=== PATIENT | female | born 1960 | race Two or more races ===

== ENCOUNTER 2019-06-05 14:12 | Outpatient (CLI) | payer OTHER ==
--- NOTE | 2019-06-11 09:40 | Mammography Report ---
Reason: ROUTINE MAMMO Procedure Date: 06/05/2019 Accession Number: [id number] / [id number] Procedure: MGN - Screening Mammo Dig Bilat CPT Code: Final Report FULL RESULT: EXAM: Screening Mammo Dig Bilat DATE: 06/05/2019 2:42 PM CLINICAL HISTORY: Screening encounter. TECHNIQUE: (B) - Bilateral CC, laterally exaggerated CC, MLO views were obtained. COMPARISON: 03/21/2018 through 08/05/2015. PARENCHYMAL PATTERN: (D) - The breast(s) demonstrate(s) heterogeneously dense fibroglandular parenchyma. FINDINGS: There are typically benign calcifications. There are no suspicious masses, calcifications, or areas of distortion. IMPRESSION: Benign findings. BI-RADS category 2. RECOMMENDATION: (ANNUAL) - Recommend routine annual screening mammography. BI-RADS CATEGORY: (2) - Benign Findings. STANDARD QUALIFYING STATEMENTS: 1. This examination was not reviewed with the aid of Computer-Aided Detection (CAD). 2. A negative or benign imaging report should not preclude biopsy if clinically suspicious findings are present. 3. Dense breasts may obscure an underlying neoplasm. 4. This examination was reviewed without the aid of 3D breast imaging (tomosynthesis).
== END 2019-06-05 14:13 | disposition home or self-care (01) ==
LOC: DI.N 14:12
DX: Z12.31 Encounter for screening mammogram for malignant neoplasm of breast (principal)
CPT/HCPCS: 77067

== ENCOUNTER 2020-10-23 14:32 | Outpatient (CLI) | payer OTHER ==
--- NOTE | 2020-10-24 09:36 | Mammography Report ---
BILATERAL DIGITAL SCREENING MAMMOGRAM 3D/2D: 10/23/2020 CLINICAL: Routine screening. Comparison is made to exams dated: 06/05/2019 mammogram - [facility] and 03/21/2018 mammogram - [facility]. The tissue of both breasts is heterogeneously dense. This may lowe r the sensitivity of mammography. There is an oval equal density mass with an obscured and circumscribed margin in the right breast patricia tral to the nipple middle depth. This is increased in size. No other significant masses, calcifications, or other findings are seen in either breast. IMPRESSION: INCOMPLETE: NEEDS ADDITIONAL IMAGING EVALUATION The oval equal density mass in the right breast resembles a cyst and is indeterminate. An ultrasound is recommended. This exam was interpreted at Station ID: [id number]. NOTE: For mammograms, a report in lay terms will be sent to the patient. Approximately 15% of breast malignancies will not be visualized mammographically. In the management of a palpable breast mass, a negative mammogram must not discourage biopsy of a clinically suspicious lesion. Electronically Signed By: Taye Tristan M.D. ddp/:10/23/2020 15:07:21 ACR BI-RADS Category 0: Incomplete 3340F PARENCHYMAL PATTERN: (D) - The breast(s) demonstrate(s) heterogeneously dense fibroglandular arely berumen. BI-RADS CATEGORY: (0) - 0 Ultrasound [id number] Immediate follow-up LATERALITY: (B)
== END 2020-10-23 14:33 | disposition home or self-care (01) ==
LOC: DI.N 14:32
DX: Z12.31 Encounter for screening mammogram for malignant neoplasm of breast (principal); R92.8 Other abnormal and inconclusive findings on diagnostic imaging of breast

== ENCOUNTER 2020-11-14 13:39 | Outpatient (CLI) | payer OTHER ==
--- NOTE | 2020-11-18 16:06 | Ultrasound Report ---
LIMITED ULTRASOUND OF RIGHT BREAST: 11/14/2020 CLINICAL: Patient returns today to evaluate a focal asymmetry in the right breast. Comparison is made to exams dated: 10/23/2020 mammogram, 06/05/2019 mammogram - [facility], and 03/21/2018 mammogram - [facility]. Color flow and real-time ultrasound of the right breast 9 o'clock region were performed. Zavala scale images of the real-time examination were reviewed. There is a 1.4 cm x 1.1 cm x 0.9 cm oval cyst in the right breast at 9 o'clock middle depth 1 cm from the nipple. This oval cyst is anechoic with a well-defined boundary and internal echoes. This oswaldo elates with mammography findings. Color flow imaging demonstrates that there is no vascularity prese nt. There also is a 0.7 cm x 0.3 cm x 0.3 cm oval mass with a circumscribed margin in the right breast at 9 o'clock posterior depth 1 cm from the nipple. This oval mass is hypoechoic with no posterior acou stic shadowing or enhancement. This abnormality is not significantly changed. There are calcificati ons within the mass. Color flow imaging demonstrates that there is no vascularity present. IMPRESSION: PROBABLY BENIGN The 1.4 cm oval cyst in the right breast at 9 o'clock middle depth is consistent with a complicated c yst and is probably benign. The 0.7 cm oval mass in the right breast at 9 o'clock posterior depth most likely is a fibroadenoma a nd is probably benign. Recommend follow-up mammogram and ultrasound in 6 months. Exam findings were conveyed to the patient. Patient is advised to monitor for significant change. This exam was interpreted at Station ID: [id number]. Electronically Signed By: Rad Robison M.D. [facility] [place]/:11/18/2020 15:33:41 Ultrasound BI-RADS: 3 Probably benign BI-RADS CATEGORY: (3) - 3 Mammo and [place] [id number] 6 month follow-up LATERALITY: (B)
== END 2020-11-14 13:40 | disposition home or self-care (01) ==
LOC: DI 13:39
PROVIDERS: ATTEND Family Medicine
DX: N60.01 Solitary cyst of right breast (principal); N63.15 Unspecified lump in the right breast, overlapping quadrants

== ENCOUNTER 2022-09-23 14:20 | Outpatient (CLI) | payer OTHER ==
[2022-09-23 17:39] LABS: CALCIUM 8.9 mg/dL (8.5-10.3); CREATININE 2.1 mg/dL (0.4-1.0); POTASSIUM 3.6 mmol/L (3.5-5.0)
[2022-09-24 18:39] LABS: CREATININE,URINE 54.8 mg/dL; MICROALBUM/CREATININE RATIO,UR 2729.9 ug/mg (<30.0); MICROALBUMIN,URINE 149.6 mg/dL (0-300.0)
== END 2022-09-23 23:59 | disposition home or self-care (01) ==
LOC: LAB.N 14:20
PROVIDERS: ATTEND Internal Medicine Nephrology
DX: R80.9 Proteinuria, unspecified (principal); N18.9 Chronic kidney disease, unspecified; E83.9 Disorder of mineral metabolism, unspecified; M89.9 Disorder of bone, unspecified
CPT/HCPCS: 36415; 80048; 81599; 82043; 82570; 83970

== ENCOUNTER 2022-10-06 14:21 | Outpatient (CLI) | payer OTHER ==
[2022-10-06 17:59] LABS: CALCIUM 8.6 mg/dL (8.5-10.3); CREATININE 1.5 mg/dL (0.4-1.0); POTASSIUM 3.9 mmol/L (3.5-5.0)
== END 2022-10-06 14:22 | disposition home or self-care (01) ==
LOC: LAB.N 14:21
PROVIDERS: ATTEND Internal Medicine Nephrology
DX: N17.9 Acute kidney failure, unspecified (principal)
CPT/HCPCS: 36415; 80048

== ENCOUNTER 2022-11-23 14:18 | Outpatient (CLI) | payer OTHER ==
[2022-11-23 18:15] LABS: CALCIUM 9.2 mg/dL (8.5-10.3); CREATININE 1.3 mg/dL (0.4-1.0); POTASSIUM 3.9 mmol/L (3.5-5.0)
[2022-11-23 18:37] LABS: CREATININE,URINE 23.4 mg/dL; MICROALBUM/CREATININE RATIO,UR 3209.4 ug/mg (<30.0); MICROALBUMIN,URINE 75.1 mg/dL (0-300.0)
== END 2022-11-23 14:19 | disposition home or self-care (01) ==
LOC: LAB.N 14:18
PROVIDERS: ATTEND Internal Medicine Nephrology
DX: N18.32 Chronic kidney disease, stage 3b (principal)
CPT/HCPCS: 36415; 80048; 82043; 82570

== ENCOUNTER 2023-03-09 14:18 | Outpatient (CLI) | payer OTHER ==
[2023-03-09 17:59] LABS: CALCIUM 9.8 mg/dL (8.5-10.3); CREATININE 1.9 mg/dL (0.6-1.3); POTASSIUM 4.1 mmol/L (3.5-4.5)
[2023-03-09 18:36] LABS: MICROALBUM/CREATININE RATIO,UR 1574.5 ug/mg (<30.0); MICROALBUMIN,URINE 86.6 mg/dL
== END 2023-03-09 14:19 | disposition home or self-care (01) ==
LOC: LAB.N 14:18
PROVIDERS: ATTEND Internal Medicine Nephrology
DX: N18.31 Chronic kidney disease, stage 3a (principal)
CPT/HCPCS: 36415; 80048; 82043; 82570

== ENCOUNTER 2023-05-04 08:00 | Outpatient (CLI) | payer OTHER | END 2023-05-04 23:59 | disposition home or self-care (01) | LOC: LAB.N 08:00 | PROVIDERS: ATTEND Physician Assistant Medical | DX: L02.31 Cutaneous abscess of buttock (principal) | CPT/HCPCS: 87070; 87077; 87205 ==

== ENCOUNTER 2023-06-22 14:04 | Emergency (ER) | payer OTHER ==
[2023-06-22 14:33] VITALS: O2SAT 99
[2023-06-22 15:06] LABS: BASOPHILS # (AUTO) 0.1 10^3/uL (0.0-0.1); BASOPHILS % (AUTO) 0.6 %; EOSINOPHILS # (AUTO) 0.3 10^3/uL (0.0-0.7); EOSINOPHILS % (AUTO) 2.1 %; HCT - HEMATOCRIT 34.7 % (37.0-47.0); HGB - HEMOGLOBIN 11.6 g/dL (12.0-16.0); LYMPHOCYTES # (AUTO) 2.9 10^3/uL (1.5-3.5); LYMPHOCYTES % (AUTO) 20.8 %; MEAN CORPUSCULAR HEMOGLOBIN 27.8 pg (27.0-31.0); MEAN CORPUSCULAR HGB CONC 33.4 g/dL (32.0-36.0); MEAN CORPUSCULAR VOLUME 83.2 fL (81.0-99.0); MEAN PLATELET VOLUME 9.8 fL (7.9-10.8); MONOCYTES # (AUTO) 0.9 10^3/uL (0.0-1.0); MONOCYTES % (AUTO) 6.7 %; NEUTROPHILS # (AUTO) 9.7 10^3/uL (1.5-6.6); NEUTROPHILS % (AUTO) 69.3 %; PLT - PLATELET COUNT 301 10^3/uL (130-450); RED BLOOD COUNT 4.17 10^6/uL (4.20-5.40); RED CELL DISTRIBUTION WIDTH 13.1 % (12.0-15.0)
[2023-06-22 15:21] LABS: CALCIUM 9.2 mg/dL (8.5-10.3); CREATININE 1.6 mg/dL (0.6-1.3); POTASSIUM 3.7 mmol/L (3.5-4.5)
[2023-06-22] MEDS ORDERED: AMPICILLIN/SULBACTAM 3 GM in SODIUM CHLORIDE 0.9% MINIBAG 100 ML IV STA (17:31)
[2023-06-22] MEDS ORDERED: HYDROmorphone 1 MG/ML CARPUJECT IVP STA (17:31)
--- NOTE | 2023-06-22 17:33 | ED Physician Documentation ---
PD HPI HEENT - Stated complaint Stated Complaint: DENTAL PX - Chief complaint Chief Complaint: Heent - History obtained from History obtained from: Patient - Additional information Additional information: She had a dental abscess, which treated conservatively with antibiotics only about three months ago. The last four or five days she developed painful swelling over left neck. [place] [facility] [place] her here for a CT. Pain is significant but denies fevers. Started amoxicillin today, has only had one dose. PD PAST MEDICAL HISTORY - Past Medical History Cardiovascular: Hypertension, High cholesterol Endocrine/Autoimmune: Type 2 diabetes - Past Surgical History Past Surgical History: No - Present Medications Home Medications: Ambulatory Orders Medication Instructions Recorded Confirmed Albuterol Sulfate [Ventolin Hfa] 2 puffs IH Q6H PRN #1 hfa.aer.ad 09/09/15 Atorvastatin [Lipitor] 20 mg PO DAILY 09/09/15 09/09/15 Telmisartan/Hydrochlorothiazid 1 tab PO DAILY 09/09/15 06/22/23 [Micardis Hct 40-12.5 mg Tablet] HYDROcod/ACETAM 5/325 [[place] 5/325] 1 - 2 tab PO Q6H PRN #15 tablet 06/22/23 Insulin Glargine [Lantus Solostar] 38 - 40 units SUBQ DAILY 06/22/23 Sitagliptin Phosphate [Januvia] 25 mg PO DAILY 06/22/23 - Allergies Allergies/Adverse Reactions: Allergies Allergy/AdvReac Type Severity Reaction Status Date / Time No Known Drug Allergies Allergy Verified 06/22/23 14:32 - Social History Does the pt smoke?: No Smoking Status: Never smoker Does the pt drink ETOH?: No Does the pt have substance abuse?: No PD ED PE NORMAL - Vitals Vital signs reviewed: Yes - General General: Alert and oriented X 3, No acute distress - HEENT HEENT: Other (Lg fiorm swelling over L mandible. no trismus, no sublingual edema.) Results - Vitals Vitals: Vital Signs - 24 hr 06/22/23 14:25 Temperature 36.7 C Heart Rate 88 Respiratory 17 Rate Blood Pressure 154/66 H O2 Saturation 99 Oxygen O2 Source Room air - Labs Labs: Laboratory Tests 06/22/23 06/22/23 14:57 14:57 WBC 14.0 H RBC 4.17 L Hgb 11.6 L Hct 34.7 L MCV 83.2 MCH 27.8 MCHC 33.4 RDW 13.1 Plt Count 301 MPV 9.8 Neut # (Auto) 9.7 H Lymph # (Auto) 2.9 Newton # (Auto) 0.9 Eos # (Auto) 0.3 Baso # (Auto) 0.1 Absolute Nucleated RBC 0.00 Nucleated RBC % 0.0 Sodium 136 Potassium 3.7 Chloride 105 Carbon Dioxide 23 Anion Gap 8.0 BUN 31 H Creatinine 1.6 H Estimated GFR (MDRD) 33 L Glucose 146 H Calcium 9.2 - Rads (name of study) CT neck Relevant Findings:: Final report received, EMP independent interpretation of test PD Medical Decision Making - ED course ED course: She was sent in by her OMFS for CT imaging. CT done and showing a phlegmon without drainable abscess at this time. I did update her OMFS and she had a copy of the CAT scan on CT to aid in follow-up with close return precautions as well. She received an IV dose of Unasyn here. Departure - Departure Disposition: Home, Self Care Clinical Impression: Phlegmon, Dental infection Condition: Good Record reviewed to determine appropriate education?: Yes Instructions: ED Tooth Pain Prescriptions: HYDROcod/ACETAM 5/325 [[place] 5/325] 1 - 2 tab PO Q6H PRN #15 tablet PRN Reason: Pain Comments: As discussed, tonight you were seen for a "phlegmon" related to a dental infection. You should continue the antibiotics and you did get a dose of IV antibiotics here. I sent a prescription for some pain medications up to [facility] in [place]. Follow-up with the oral surgeon in a couple of days for recheck as this may develop into more of an abscess that needs drainage, but does not need drainage at this time. I am prescribing a short course of narcotic pain medication for you. These are potentially dangerous and addictive medications that should be used carefully. These medications may constipate you. Take an icsn-gbj-wvrvteu stool softener (docusate) twice daily with plenty of water while taking these medications. If you go 24 hours without a bowel movement, take tetv-yrd-dzvugzp miralax, per package instructions. Do not drink or drive while taking these medications. If you received narcotic or sedating medications while in the emergency department, do not drive for 24 hours. Store this medication in a safe, secure place and out of reach of children. It is a violation of federal law to give or sell this medication to another person or to use in a manner other than prescribed. The ED will not refill narcotic prescriptions, including prescriptions lost or stolen. To dispose of unwanted medications: 1. [facility] provides a drop box for medication in pill form only (no liquids) 8:00 am to 4:30 p.m. Tuesday-Tuesday in the lobby of the [facility] [place], [address] [place] [address]. Empty pills into ziplock bag before disposal. Call [phone] for information. 2.[employer] is a free service available to all [facility] residents. Go to [email or web address] Note that many narcotic pain relievers also contain Tylenol/acetaminophen. Please ensure that your total dose of acetaminophen from all sources does not exceed 3 g (3000 mg) per day. Forms: PCP List
[2023-06-22] MEDS: ONDANSETRON 4 MG/2 ML VIAL IVP STA ×2 (17:53→18:20)
[2023-06-22] MEDS ORDERED: SODIUM CHLORIDE 0.9% 1,000 ML IV STA (18:36)
[2023-06-22] MEDS ORDERED: iohexoL-300 100 ML VIAL IVP ONE (18:49)
--- NOTE | 2023-06-22 19:06 | CT Report ---
PROCEDURE: Soft Tissue Neck W INDICATIONS: neck swelling CONTRAST: 100ml omni 300 TECHNIQUE: After the administration of intravenous contrast, 3.0 mm axial sections acquired from the sella to th e aortic arch. Additional oblique axial 3.0 mm sections acquired through the pharynx. 3 mm thick co horace reformats were generated. For radiation dose reduction, the following was used: automated exp osure control, adjustment of mA and/or kV according to patient size. COMPARISON: None. FINDINGS: Image quality: Motion artifact is noted. Lymph nodes: No enlarged lymph nodes seen throughout th e neck. Poorly prominent lymph nodes can be seen, including involving the left side of the neck. Vessels: Visualized vasculature appears patent. Neck spaces: The site of clinical concern is marked. Within this region within the left submandibula r area, there is a poorly defined enhancement seen, with poorly defined fluid. The oropharynx, nasopharynx, and pharynx demonstrate no mucosal lesions. The vocal cords, false voca l cords, pyriform sinuses, epiglottis, vallecula, and tongue base all appear normal. Extramucosal sp aces appear unremarkable. Glands: The parotid and submandibular glands appear normal. The thyroid is normal in size and there are no incidental findings. Miscellaneous: Visualized brain and orbits appear normal. Lung apices appear clear. Superficial so ft tissues appear normal. Bones: No suspicious bony lesions. Visualized sinuses and mastoids appear unremarkable. IMPRESSION: No drainable abscess can be seen. Inflammatory change can be seen within the left submandibular region, which is attributed to cellulit is with likely phlegmon. Borderline prominent lymph nodes are seen, without shirley enlarged lymph nodes seen. CLINICAL RECOMMENDATION STATEMENTS: In patients <35 years with an ITN detected on CT, MRI, or extrathyroidal ultrasound, the Committee re commends further evaluation with dedicated thyroid ultrasound if the nodule is "e1 cm and has no susp icious imaging features, and if the patient has normal life expectancy. In patients "e35 years with an ITN detected on CT, MRI, or extrathyroidal ultrasound, the Committee r ecommends further evaluation with dedicated thyroid ultrasound if the nodule is "e1.5 cm and has no s uspicious imaging features, and if the patient has normal life expectancy. (ACR, 2014) Reviewed by: Gibson Ambrocio MD on 06/22/2023 6:05 PM AKST Approved by: Gibson Ambrocio MD on 06/22/2023 6:05 PM [facility] Station ID: [id number]
[2023-06-22 20:00] VITALS: BP 141/75
== END 2023-06-22 20:01 | disposition home or self-care (01) ==
LOC: ED 14:04
DX: E11.9 Type 2 diabetes mellitus without complications (principal); Z79.4 Long term (current) use of insulin; K04.7 Periapical abscess without sinus
CPT/HCPCS: 36415; 70491; 80048; 85025; 96365; 99284; Q9967